=== PATIENT | male | born 1960 | race Two or more races ===

== ENCOUNTER 2017-03-31 14:43 | Inpatient (IN) | payer MEDICAID ==
[~2017-03-31] VITALS: Ht 154.9 cm; Wt 52.6 kg
--- NOTE | 2017-03-31 14:50 | NUR ---
PT MBULATORY TO ER BED 12. C/O N/V/D THAT STARTED LAST NIGHT AFTER EATING GREENLANDIC FOOD. PT DENIES ABDOMINAL PAIN. GOWNED AND PLACED ON MONITOR. 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 POLISH SPEAKING STATES DIABETIC AND NOT TAKING MEDICATION. LEIGH=ANEL LIM.
--- NOTE | 2017-03-31 15:03 | NUR ---
DR VARGAS AT BEDSIDE FOR EVAL.
[2017-03-31 15:20] LABS: BASOPHILS # (AUTO) 0.1 /CMM (0.0-0.2); BASOPHILS % (AUTO) 0.5 % (0.0-2.0); HEMATOCRIT 45 % (39-51); HEMOGLOBIN 14.6 g/dL (13.5-17.5); LYMPHOCYTES # (AUTO) 0.4 /CMM (0.8-4.8); MEAN CORPUSCULAR HEMOGLOBIN 29 PG (26.0-33.0); MEAN CORPUSCULAR HGB CONC 33 g/dl (31.0-36.0); MEAN CORPUSCULAR VOLUME 90 fL (80-96); MONOCYTES % (AUTO) 5.4 % (2.0-12.0); NEUTROPHILS # (AUTO) 17.5 /CMM (1.8-8.9); NEUTROPHILS % (AUTO) 92.1 % (43.0-81.0); PLATELET COUNT (AUTO) 274 /CMM (150-450); RDW COEFFICIENT OF VARIATION 11.7 (11.5-15.0); RED BLOOD CELL COUNT(AUTO) 5.03 MIL/uL (4.5-6.0)
[2017-03-31] MEDS ORDERED: ONDANSETRON HCL/PF 4 MG/2 ML VIAL ONE (15:21)
[2017-03-31] MEDS ORDERED: IV NS 0.9% 1,000 ML ONE ×3 (15:22→15:56)
[2017-03-31] MEDS ORDERED: IV SET PRIMARY 1 EA INFUS.SET MC ONE ×2 (15:22→15:27)
[2017-03-31 15:24] LABS: ABG BASE EXCESS -14.3 mmol/L; ABG OXYGEN SATURATION 71.3 % (92.0-98.5); ABG PCO2 29.6 mmHg (35.0-45.0); ABG PH 7.224 (7.350-7.450); ABG PO2 42.5 mmHg (75.0-100.0); AaDO2 71.8 mmHg; MetHb 0.5 % (0.0-1.5); O2Hb 70.2 % (94.0-97.0); SITE, ABG A-Line; VENT MODE, BG ROOM AIR
[2017-03-31] MEDS ORDERED: ONDANSETRON HCL/PF 4 MG/2 ML VIAL IVP ONE (15:30)
[2017-03-31] MEDS ORDERED: IV NS 0.9% 1,000 ML BAG IV ONE ×4 (15:30→21:00)
[2017-03-31 15:40] LABS: CALCIUM, SERUM 9.8 mg/dL (8.5-10.1); CARBON DIOXIDE 14 mmol/L (21-32); CHLORIDE 88 mmol/L (98-107); CREATININE 3.3 mg/dL (0.6-1.3); POTASSIUM 5.9 mmol/L (3.5-5.1); UREA NITROGEN, BLOOD 32 mg/dL (7-18)
[2017-03-31 15:42] LABS: GLUCOSE 942 mg/dL (74-106); SODIUM SERUM 119 mmol/L (136-145)
[2017-03-31] MEDS ORDERED: IV SET PRIMARY PUMP SET 1 EA INFUS.SET MC ONE ×2 (15:56→16:17)
[2017-03-31] MEDS ORDERED: INSULIN REGULAR, HUMAN 100 UNIT/ML 10 ML VIAL ONE (15:56)
[2017-03-31] MEDS ORDERED: Calcium Gluconate 1GM/10ML 4.65 MEQ in IV D5W 50 ML IV ONE (16:00)
[2017-03-31] MEDS ORDERED: INSULIN REGULAR, HUMAN 100 UNIT in IV NS 0.9% 99 ML IV PRN ×4 (16:00→18:00)
[2017-03-31] MEDS ORDERED: IV NS 0.9% 1,000 ML IV ONE (16:00)
[2017-03-31 16:16] LABS: MAGNESIUM 2.3 mg/dL (1.8-2.4); PHOSPHORUS 6.5 mg/dL (2.5-4.9)
--- NOTE | 2017-03-31 16:22 | NUR ---
SPOKE WITH NURSING POULTRY PROCESSING SUPERVISOR FOR ICU BED
[2017-03-31] MEDS ORDERED: PIPERACILLIN /TAZOBACTAM 3.375 G in IV D5W 50 ML IV ONE (16:30)
[2017-03-31] MEDS ORDERED: VANCOMYCIN 1 GM in IV D5W 250 ML IV ONE (16:30)
--- NOTE | 2017-03-31 16:30 | NUR ---
DR QUEZADA PAGED [phone]
[2017-03-31] MEDS ORDERED: LIDOCAINE VISCOUS 2% UD 15 ML UDC ONE (16:44)
[2017-03-31] MEDS ORDERED: LIDOCAINE VISCOUS 2% UD 15 ML UDC MM ONE (17:00)
[2017-03-31] MEDS ORDERED: IV NS 0.9% 1,000 ML IV PRN (17:22)
[2017-03-31] MEDS ORDERED: MAG HYDROX/AL HYDROX/SIMETH 30 ML UDC PO PRN (17:30)
[2017-03-31] MEDS ORDERED: HYDROCODONE/APAP 5/325MG 1 EACH TABLET PO PRN (17:30)
[2017-03-31] MEDS ORDERED: ONDANSETRON HCL/PF 4 MG/2 ML VIAL IVP PRN (17:30)
[2017-03-31] MEDS ORDERED: MAGNESIUM HYDROXIDE 30 ML UDC PO PRN (17:30)
[2017-03-31] MEDS ORDERED: ACETAMINOPHEN 325 MG TABLET PO PRN (17:30)
[2017-03-31 17:44] LABS: BILIRUBIN,DIRECT 0.2 mg/dL (0.0-0.2); BILIRUBIN,TOTAL 1.3 mg/dL (0.2-1.0)
--- NOTE | 2017-03-31 17:44 | NUR ---
REPORT GIVEN. PT AWAITING TRANSFER TO FLOOR.
--- NOTE | 2017-03-31 17:50 | NUR ---
BLOOD SUGAR RECHECK 500MG/DL ERMD AWARE.
[2017-03-31] MEDS ORDERED: PIPERACILLIN /TAZOBACTAM 3.375 G in IV D5W 50 ML IV SCH (18:00)
[2017-03-31] MEDS ORDERED: FEE PK DOSING 1 MIN EA MC ONE (18:19)
--- NOTE | 2017-03-31 18:30 | NUR ---
RECEIVED 56 YO MALE VIA RetidocRNEY FROM ER TO RM 260. OMANI SPEAKING RN SUPPLIED FOR PT. DX: DKA AND SBO. ALERT AND ORIENTED. APPEARS THIN AND DEHYDRATED. DENIES SIGNIF ABDOM PAIN. FREQ LOOSE BROWN BMS. NGT TO LCS DRAINING SM AMT GREENISH FLUID. INSULIN GTT TITRATED TO 2 X BS DIVIDED BY 100 EQUALS HOURLY GTT RATE IN UNITS. NS AT 200 MLS/HR
[2017-03-31 18:33] VITALS: BP 98/61
[2017-03-31] MEDS: BLOOD SUGAR DIAGNOSTIC 1 EACH STRIP IN SCH ×6 (18:53→23:54)
[2017-03-31 19:00] VITALS: BP 104/68
[2017-03-31 20:00] VITALS: BP_SYST 86; BP_SYST 87; BP_DIAS 43; BP_DIAS 53
--- NOTE | 2017-03-31 20:00 | NUR ---
COLLECTOR OF INTERNAL REVENUE: RECEIVED PT IN BED. PT ALERT AND ORIENTED .PT ON ROOM AIR. NGT TO LOW INT SUCTION DENIES ANY ABD PAIN OR SOB. ON INSULIN DRIP . BLOOD GLUCOSE CHECKED AND READJUSTED.RAC AND LAC INTACT AND PATENT. PTS BP IS 87/53 CALLED ON-CALL SAURABH BAKER FOR ORDERS .
[2017-03-31 20:19] LABS: CALCIUM, SERUM 8.9 mg/dL (8.5-10.1); CREATININE 2.1 mg/dL (0.6-1.3); POTASSIUM 3.5 mmol/L (3.5-5.1)
--- NOTE | 2017-03-31 20:35 | NUR ---
SALES CONSULTANT RESIDENTIAL MANAGER: SAURABH BAKER GAVE ORDERS FOR TWO LITER BOLUS DUE TO LOW BP.
[2017-03-31 21:00] VITALS: BP 94/60
[2017-03-31] MEDS ORDERED: IV NS 0.9% 1,000 ML BAG IV PRN (21:00)
[2017-03-31] MEDS: Z GUARD REMEDY 2 OZ OINT TP PRN (21:03)
--- NOTE | 2017-03-31 21:30 | NUR ---
AUTO PARTS PROFESSIONAL : PT VOMITED SMALL AMOUNT OF BLOOD (100ML) , PT KEPT NPO . STOOL OB SENT TO LAB . WILL CONT TO MONITOR.
[2017-03-31 22:00] VITALS: BP 90/56
[2017-03-31 23:00] VITALS: BP 115/77
--- NOTE | 2017-03-31 23:15 | NUR ---
BUSINESS SERVICES MANAGER : SAURABH BAKER AWARE OF 0 BNP AND LATEST BLOOD GLUCOSE OF 93 . GAVE ORDERS TO CHANGE FACTOR TO BS X 1.2 / 100 . WILL CONTINUE TO USE ON 1 AM BLOOD GLUCOSE CHECK. Addendum: 04/01/17 at 0216 by AUSTYN ANDERSON RN BMP TO BE DONE Q4 HR , CLARIFIED WITH OLIVIA FORBES
[2017-03-31] MEDS ORDERED: PANTOPRAZOLE 40 MG VIAL ONE (23:24)
--- NOTE | 2017-03-31 23:28 | NUR ---
CALL BOX WIRER : SAURABH BAKER AWARE OF PT VOMITING 100 ML OF BLOOD AND 100 ML NGT OUPUT OF BLOOD. ORDER FOR PROTONIX GIVEN. AWARE OF PT HAVING NO URINE OUTPUT AND LATEST K LEVEL. GAVE ORDER TO CHANGE IVF TO D5NS WITH 20 MEQ KCL AT 200 ML/HR.
[2017-03-31] MEDS ORDERED: IV PREMIX D5 NS + KCL 1,000 ML IV ONE (23:32)
[2017-03-31] MEDS: PANTOPRAZOLE 40 MG VIAL IV SCH (23:32)
[2017-03-31 23:36] LABS: CALCIUM, SERUM 8.3 mg/dL (8.5-10.1); CREATININE 1.4 mg/dL (0.6-1.3)
[2017-03-31] MEDS: Potassium Chloride 20 MEQ in IV D5/ 0.9% NACL 1,000 ML IV SCH (23:45)
[2017-03-31] MEDS: PIPERACILLIN /TAZOBACTAM 2.25 G in IV D5W 50 ML IV SCH (23:54)
[2017-03-31] MEDS ORDERED: SECONDARY IV SET 1 EA INFUS.SET MC ONE (23:59)
[2017-04-01] VITALS (30 sets, daily range): BP systolic 80–138; BP diastolic 40–80
[2017-04-01] MEDS: BLOOD SUGAR DIAGNOSTIC 1 EACH STRIP IN SCH ×19 (01:13→23:08)
[2017-04-01 03:26] LABS: BASOPHILS % (AUTO) 0.1 % (0.0-2.0); HEMATOCRIT 33 % (39-51); HEMOGLOBIN 11.5 g/dL (13.5-17.5); LYMPHOCYTES # (AUTO) 0.8 /CMM (0.8-4.8); LYMPHOCYTES % (AUTO) 6.1 % (20.0-44.0); MEAN CORPUSCULAR HEMOGLOBIN 30 PG (26.0-33.0); MEAN CORPUSCULAR HGB CONC 35 g/dl (31.0-36.0); MEAN CORPUSCULAR VOLUME 86 fL (80-96); MONOCYTES # (AUTO) 0.8 /CMM (0.1-1.30); MONOCYTES % (AUTO) 5.9 % (2.0-12.0); NEUTROPHILS # (AUTO) 11.7 /CMM (1.8-8.9); NEUTROPHILS % (AUTO) 87.9 % (43.0-81.0); PLATELET COUNT (AUTO) 247 /CMM (150-450); RDW COEFFICIENT OF VARIATION 12.5 (11.5-15.0); RED BLOOD CELL COUNT(AUTO) 3.87 MIL/uL (4.5-6.0); WHITE BLOOD COUNT (AUTO) 13.3 K/uL (4.3-11.0)
[2017-04-01 03:38] LABS: ALBUMIN 2.7 g/dL (3.4-5.0); BILIRUBIN,TOTAL 1.2 mg/dL (0.2-1.0); CALCIUM, SERUM 8.1 mg/dL (8.5-10.1); CREATININE 1.1 mg/dL (0.6-1.3); PHOSPHORUS 3.5 mg/dL (2.5-4.9); POTASSIUM 4.2 mmol/L (3.5-5.1); TOTAL PROTEIN, SERUM 6.2 g/dL (6.4-8.2)
[2017-04-01 03:49] LABS: THYROID STIMULATING HORMONE 1.263 uIU/mL (0.358-3.74)
[2017-04-01] MEDS ORDERED: IV PREMIX D5 NS + KCL 1,000 ML IV ONE (04:46)
[2017-04-01] MEDS: Potassium Chloride 20 MEQ in IV D5/ 0.9% NACL 1,000 ML IV SCH (05:00)
[2017-04-01] MEDS: PIPERACILLIN /TAZOBACTAM 2.25 G in IV D5W 50 ML IV SCH ×2 (05:02→11:36)
--- NOTE | 2017-04-01 07:10 | NUR ---
ICU INITIAL NOTES RECEIVED PT IN BED, AWAKE, ABLE TO MAKE NEEDS KNOWN, GABONESE SPEAKING, ABLE TO FOLLOW COMMANDS, PT IS ON TELE MONITOR SHOWING SR @ 70BMP, NO C/O CHEST PAIN OR DISCOMFORT AT THIS TIME, PT IS ON RA, SATING 99%, NO S/S OF RESP.DISTRESS OR SOB NOTED AT THIS TIME, PT HAS L NGT, DRAINING BLOODY FLUID, MD AWARE, PT CURRENTLY IS NPO AT THIS TIME, RAC # 18G, RUNNING D5 NS+20 KCL @ 200ML/HR, INSULIN DRIP @ 1.8 UNITS/HR, LAC #18G, C/D/I/PATENT; FLUSHING WELL, NO S/S OF INFECTION/ INFILTRATION NOTED AT THIS TIME, PT SIGNED CONSENT FOR SBFT, ALL SAFETY MEASURES IN PLACE AT ALL TIMES, CALL LIGHT WITHIN EASY REACH, WILL MONITOR PT CLOSELY FOR CHANGES
[2017-04-01] MEDS ORDERED: PANTOPRAZOLE 40 MG TABLET.DR PO SCH (07:30)
[2017-04-01 08:21] LABS: CALCIUM, SERUM 8.2 mg/dL (8.5-10.1)
[2017-04-01] MEDS: PANTOPRAZOLE 40 MG VIAL IV SCH ×2 (08:38→16:43)
--- NOTE | 2017-04-01 08:52 | NUR ---
ICU NOTES NON ADMINISTERED PINK MEDICATIONS FOR PT SAFETY
[2017-04-01] MEDS: Potassium Chloride 20 MEQ in IV D5/ 0.9% NACL 1,000 ML IV PRN ×2 (08:54→16:34)
--- NOTE | 2017-04-01 09:00 | NUR ---
ICU NOTES , DR. JOLLEY AND SARA WILKINS AWARE OF CT ADBOMEN/PELVIS, [facility] WANT SMALL BOWEL FOLLOW THOUGH, AWAITING FOR RADIOLOGY.
--- NOTE | 2017-04-01 09:09 | NUR ---
called patient down for exam, nurse will notify us when ready
--- NOTE | 2017-04-01 10:00 | NUR ---
ICU NOTES SARA WILKINS MADE ROUNDS, AWARE OF LABS AND RESULTS, ALL NEW ORDERS ACK.
[2017-04-01 13:27] LABS: CREATININE 0.8 mg/dL (0.6-1.3); POTASSIUM 3.7 mmol/L (3.5-5.1)
[2017-04-01] MEDS: VANCOMYCIN 0.75 GM in IV D5W 250 ML IV SCH ×2 (14:28→21:23)
[2017-04-01] MEDS ORDERED: DEXTROSE 50%-WATER 50 ML DISP.SYRIN IV PRN (15:00)
--- NOTE | 2017-04-01 16:00 | NUR ---
ICU NOTES CONSENT OBTAINED FOR EGD, BLOOD AND ANESTHESIA
[2017-04-01 16:05] LABS: CALCIUM, SERUM 8.3 mg/dL (8.5-10.1); CREATININE 0.7 mg/dL (0.6-1.3); POTASSIUM 3.6 mmol/L (3.5-5.1)
[2017-04-01 16:17] LABS: APPEARANCE,URINE SL CLOUDY (CLEAR); BILIRUBIN,URINE NEGATIVE (NEGATIVE); BLOOD, URINE NEGATIVE Ery/uL (NEGATIVE); COLOR,URINE YELLOW (YELLOW); KETONES,URINE NEGATIVE (NEGATIVE); LEUKOCYTE ESTERASE ,URINE NEGATIVE (NEGATIVE); NITRITE, URINE NEGATIVE (NEGATIVE); PH,URINE 5.5 (5.0-8.0); PROTEIN,URINE 1+ mg/dl (NEGATIVE); UGLUCOSE 2+ mg/dL (NEGATIVE); UROBILINOGEN,URINE 0.2 EU/dL (0.2)
[2017-04-01 16:21] LABS: BACTERIA,URINE None seen /HPF (None Seen); RBC,URINE 0-2 /HPF (0-2); SQUAMOUS EPITHELIAL CELL,UR Rare /HPF (None Seen); WBC,URINE 0-2 /HPF (0-3)
[2017-04-01 16:22] LABS: URIC ACID CRYSTALS,URINE Few /HPF (None Seen)
[2017-04-01] MEDS: INSULIN REGULAR, HUMAN 100 UNIT/ML 3 ML VIAL SQ PRN ×4 (16:31→23:19)
[2017-04-01] MEDS ORDERED: VANCOMYCIN 1 GM in IV D5W 250 ML IV SCH (17:00)
[2017-04-01] MEDS ORDERED: DIATR MEGLU/DIATRIZOATE SODIUM 120 ML BOTTLE (GASTROGRAPHIN) ONE (17:38)
--- NOTE | 2017-04-01 18:00 | NUR ---
ICU NOTES DR. JOLLEY AT BEDSIDE, STATED THAT IF H/H STABLE, NO BLEEDING NO NEED FOR EGD
[2017-04-01] MEDS: PIPERACILLIN /TAZOBACTAM 3.375 G in IV D5W 50 ML IV SCH ×2 (18:18→23:08)
[2017-04-01 18:25] LABS: HEMOGLOBIN 11.5 g/dL (13.5-17.5)
--- NOTE | 2017-04-01 18:37 | NUR ---
ICU NOTE INSULIN DRIP D/C PER MD ORDER
[2017-04-01] MEDS ORDERED: IV SET PRIMARY PUMP SET 1 EA INFUS.SET MC ONE (19:35)
[2017-04-01] MEDS: IV D5/0.45 NACL 1,000 ML IV PRN (19:42)
[2017-04-01 19:56] LABS: CALCIUM, SERUM 8.1 mg/dL (8.5-10.1); CREATININE 0.6 mg/dL (0.6-1.3); POTASSIUM 3.7 mmol/L (3.5-5.1)
--- NOTE | 2017-04-01 20:40 | NUR ---
MANUFACTURING MAINTENANCE TECHNICIAN JOANN PETIT TECH AT BEDSIDE TO DO SMALL BOWEL FOLLOW THROUGH. RADIOLOGIST DR JENKINS APPROVED PROCEDURE AND PER AM NURSE SARA WILKINS, DR QUEZADA AND DR FLORENCE ALL STILL WANT THE PROCEDURE TO BE DONE. NGT PLACEMENT VERIFIED VIA AUSCULTATION AND XR. PT POSITIONED PROPERLY FOR XR. PT DENIES ANY ALLERGIES. IODINE GASTROGRAFIN GIVEN VIA NGT. PT TOLERATED WELL.
[2017-04-01 23:25] LABS: CALCIUM, SERUM 8.5 mg/dL (8.5-10.1); CREATININE 0.7 mg/dL (0.6-1.3); POTASSIUM 3.5 mmol/L (3.5-5.1)
[2017-04-02] VITALS (20 sets, daily range): BP systolic 102–145; BP diastolic 60–88
[2017-04-02] MEDS: BLOOD SUGAR DIAGNOSTIC 1 EACH STRIP IN SCH ×8 (00:57→21:07)
[2017-04-02] MEDS: INSULIN REGULAR, HUMAN 100 UNIT/ML 3 ML VIAL SQ PRN ×8 (00:59→21:14)
[2017-04-02 03:43] LABS: CALCIUM, SERUM 8.5 mg/dL (8.5-10.1); CREATININE 0.7 mg/dL (0.6-1.3); POTASSIUM 3.6 mmol/L (3.5-5.1)
[2017-04-02] MEDS: PIPERACILLIN /TAZOBACTAM 3.375 G in IV D5W 50 ML IV SCH ×4 (05:22→23:15)
[2017-04-02] MEDS: VANCOMYCIN 0.75 GM in IV D5W 250 ML IV SCH ×3 (06:16→21:07)
--- NOTE | 2017-04-02 06:21 | NUR ---
ANALYTICAL STRATEGIST NO CHANGES NOTED THROUGHOUT THE NIGHT. 300ML OF DARK MAROON COLORED LIQUID OUT FROM NGT SUCTION
--- NOTE | 2017-04-02 07:15 | NUR ---
ICU INITIAL NOTES RECEIVED PT IN BED, AWAKE, ABLE TO MAKE NEEDS KNOWN, MICRONESIAN SPEAKING, ABLE TO FOLLOW COMMANDS, PT IS ON TELE MONITOR SHOWING SR @ 76 BPM, NO C/O CHEST PAIN OR DISCOMFORT AT THIS TIME, PT IS ON RA, SATING 99%, NO S/S OF RESP.DISTRESS OR SOB NOTED AT THIS TIME, PT HAS L NGT, DRAINING MINIMAL GREENISH/MAROON FLUID, INTACT/PATENT, FLUSHING WELL, PT CURRENTLY IS NPO AT THIS TIME, PT HAS RAC # 18G, RUNNING D5 1/2NS @75ML/HR, LAC #18G, C/D/I/PATENT; FLUSHING WELL, NO S/S OF INFECTION/ INFILTRATION NOTED AT THIS TIME, ALL SAFETY MEASURES IN PLACE AT ALL TIMES, CALL LIGHT WITHIN EASY REACH, WILL MONITOR PT CLOSELY FOR CHANGES
[2017-04-02 07:50] LABS: CALCIUM, SERUM 8.4 mg/dL (8.5-10.1); CREATININE 0.7 mg/dL (0.6-1.3); POTASSIUM 3.4 mmol/L (3.5-5.1)
[2017-04-02] MEDS: PANTOPRAZOLE 40 MG VIAL IV SCH (09:12)
[2017-04-02] MEDS: Z GUARD REMEDY 2 OZ OINT TP PRN (09:17)
--- NOTE | 2017-04-02 09:20 | NUR ---
ICU NOTE RECEIVED ORDERS TO REMOVED NGT AND START CLEAR LIQUIDS, NGT REMOVED, PT TOLERATED WELL, WILL MONITOR PT CLOSELY FOR CHANGES
[2017-04-02 09:36] LABS: BASOPHILS % (AUTO) 0.1 % (0.0-2.0); EOSINOPHILS # (AUTO) 0.1 /CMM (0.0-0.7); EOSINOPHILS % (AUTO) 0.5 % (0.0-6.0); HEMATOCRIT 36 % (39-51); HEMOGLOBIN 12.2 g/dL (13.5-17.5); LYMPHOCYTES # (AUTO) 0.8 /CMM (0.8-4.8); LYMPHOCYTES % (AUTO) 5.7 % (20.0-44.0); MEAN CORPUSCULAR HEMOGLOBIN 30 PG (26.0-33.0); MEAN CORPUSCULAR HGB CONC 34 g/dl (31.0-36.0); MEAN CORPUSCULAR VOLUME 87 fL (80-96); MONOCYTES # (AUTO) 0.3 /CMM (0.1-1.30); MONOCYTES % (AUTO) 1.7 % (2.0-12.0); NEUTROPHILS # (AUTO) 13.6 /CMM (1.8-8.9); PLATELET COUNT (AUTO) 233 /CMM (150-450); RDW COEFFICIENT OF VARIATION 13.4 (11.5-15.0); RED BLOOD CELL COUNT(AUTO) 4.15 MIL/uL (4.5-6.0); WHITE BLOOD COUNT (AUTO) 14.8 K/uL (4.3-11.0)
[2017-04-02 10:56] LABS: BAND % (MANUAL) 13 % (0.0-5.0); LYMPHOCYTES % (MANUAL) 3 % (16-48); MONOCYTES % (MANUAL) 4 % (0-11.0); NEUTROPHILS % (MANUAL) 80 (42-76)
[2017-04-02] MEDS ORDERED: POTASSIUM CL. PREMIX PERIPHER. 50 ML IV SCH (11:00)
[2017-04-02] MEDS ORDERED: SECONDARY IV SET 1 EA INFUS.SET MC ONE (11:08)
[2017-04-02] MEDS ORDERED: POTASSIUM CHLORIDE 20 MEQ POWDER PACKET NG SCH (11:30)
[2017-04-02] MEDS ORDERED: DEXTROSE 50%-WATER 50 ML DISP.SYRIN IV PRN (12:00)
[2017-04-02] MEDS: IV D5/0.45 NACL 1,000 ML IV PRN (13:28)
--- NOTE | 2017-04-02 15:35 | NUR ---
RN INITIAL NOTE PATIENT RECEIVED, TRANSFER FROM ICU. REPORT RECEIVED FROM YUKO.
--- NOTE | 2017-04-02 15:38 | NUR ---
ICU NOTES REPORT WAS GIVEN TO JAYASHREE TOPETE, FOR EUSEBIO, TRANSFERRED PT TO ROOM WITH FAMILY AT BEDSIDE
[2017-04-02] MEDS: METFORMIN 500 MG TABLET PO SCH (16:26)
[2017-04-02] MEDS: glipiZIDE 5 MG TABLET PO SCH (16:26)
--- NOTE | 2017-04-02 20:00 | NUR ---
PROGRAM DIRECTOR SCOUTING - NOTES - RECEIVED PT IN BED, AWAKE, ABLE TO MAKE NEEDS KNOWN, PARAGUAYAN SPEAKING, ABLE TO FOLLOW COMMANDS, NO C/O CHEST PAIN OR DISCOMFORT AT THIS TIME, PT IS ON RA, SATING 96%, NO S/S OF RESP.DISTRESS OR SOB NOTED AT THIS TIME, PT CURRENTLY IS ON CLEAR LIQUID DIET, ADVANCE TOLERATED AT THIS TIME, PT HAS RAC # 18G, RUNNING D5 1/2NS @75ML/HR, C/D/I/PATENT; FLUSHING WELL, NO S/S OF INFECTION/ INFILTRATION NOTED AT THIS TIME, ALL SAFETY MEASURES IN PLACE AT ALL TIMES, CALL LIGHT WITHIN EASY REACH, WILL MONITOR PT CLOSELY FOR CHANGES
[2017-04-02] MEDS: PANTOPRAZOLE 40 MG TABLET.DR PO SCH (21:07)
[2017-04-03 04:00] VITALS: BP 106/68
[2017-04-03] MEDS: PIPERACILLIN /TAZOBACTAM 3.375 G in IV D5W 50 ML IV SCH ×2 (06:00→11:19)
[2017-04-03] MEDS: VANCOMYCIN 0.75 GM in IV D5W 250 ML IV SCH ×2 (06:00→15:18)
[2017-04-03 06:40] LABS: BASOPHILS % (AUTO) 0.2 % (0.0-2.0); EOSINOPHILS # (AUTO) 0.1 /CMM (0.0-0.7); EOSINOPHILS % (AUTO) 0.9 % (0.0-6.0); HEMATOCRIT 35 % (39-51); HEMOGLOBIN 11.9 g/dL (13.5-17.5); LYMPHOCYTES # (AUTO) 1.2 /CMM (0.8-4.8); LYMPHOCYTES % (AUTO) 10.1 % (20.0-44.0); MEAN CORPUSCULAR HEMOGLOBIN 30 PG (26.0-33.0); MEAN CORPUSCULAR HGB CONC 34 g/dl (31.0-36.0); MEAN CORPUSCULAR VOLUME 87 fL (80-96); MONOCYTES # (AUTO) 0.7 /CMM (0.1-1.30); MONOCYTES % (AUTO) 5.4 % (2.0-12.0); NEUTROPHILS # (AUTO) 10.3 /CMM (1.8-8.9); NEUTROPHILS % (AUTO) 83.4 % (43.0-81.0); PLATELET COUNT (AUTO) 239 /CMM (150-450); RDW COEFFICIENT OF VARIATION 13.1 (11.5-15.0); RED BLOOD CELL COUNT(AUTO) 3.98 MIL/uL (4.5-6.0); WHITE BLOOD COUNT (AUTO) 12.3 K/uL (4.3-11.0)
[2017-04-03 06:55] LABS: CALCIUM, SERUM 8.3 mg/dL (8.5-10.1); CREATININE 0.6 mg/dL (0.6-1.3); POTASSIUM 3.3 mmol/L (3.5-5.1)
[2017-04-03 08:00] VITALS: BP 122/79
[2017-04-03] MEDS: BLOOD SUGAR DIAGNOSTIC 1 EACH STRIP IN SCH ×2 (08:10→12:25)
[2017-04-03] MEDS: METFORMIN 500 MG TABLET PO SCH (08:12)
[2017-04-03] MEDS: PANTOPRAZOLE 40 MG TABLET.DR PO SCH (08:12)
[2017-04-03] MEDS: glipiZIDE 5 MG TABLET PO SCH (08:12)
[2017-04-03] MEDS: INSULIN REGULAR, HUMAN 100 UNIT/ML 3 ML VIAL SQ PRN ×2 (08:12→12:31)
[2017-04-03] MEDS ORDERED: POTASSIUM CHLORIDE 20 MEQ POWDER PACKET NG SCH (10:30)
[2017-04-03] MEDS ORDERED: SECONDARY IV SET 1 EA INFUS.SET MC ONE (11:10)
[2017-04-03] MEDS ORDERED: GLIP5TAB13 PO (12:26)
[2017-04-03] MEDS ORDERED: METF500T4 PO (12:26)
[2017-04-03] MEDS ORDERED: PNEUMOCOCCAL 23-VAL P-SAC VAC 0.5 ML VIAL SQ ONE (14:00)
[2017-04-03] MEDS: IV D5/0.45 NACL 1,000 ML IV PRN (15:18)
[2017-04-03 16:00] VITALS: BP 145/82
--- NOTE | 2017-04-03 17:43 | NUR ---
RN NOTE PT DISCHARGED HOME WITH BROTHER IN STABLE CONDITION, AMBULATORY, EXIT CARE PROVIDED TO PT, DISCHARGE INSTRUCTIONS GIVEN TO PT, PRESCRIPTION PROVIDED TO PT AND FAXED TO [facility]ARM[facility], , IV REMOVED, ID BAND REMOVED, SKIN INTACT, BELONGINGS LIST SIGNED AND GIVEN TO PT. PHONE NUMBER FOR URGENT CARE AT [facility] GIVEN.
== END 2017-04-03 17:40 | disposition home or self-care (01) | DRG 420 ==
LOC: ER 14:49 → ICU 18:11 → MEDSG1 04-02 15:43
PROVIDERS: ADMIT Nurse Practitioner Acute Care; ATTEND Nurse Practitioner Acute Care
DX: E13.10 Other specified diabetes mellitus with ketoacidosis without coma (principal); N17.0 Acute kidney failure with tubular necrosis; K56.60 Unspecified intestinal obstruction; D62 Acute posthemorrhagic anemia; K92.2 Gastrointestinal hemorrhage, unspecified; E87.5 Hyperkalemia; E86.0 Dehydration; Z83.3 Family history of diabetes mellitus
CPT/HCPCS: 36415; 36600; 71010-TC; 72128-TC; 74250-TC; 80048-TC; 80053-TC; 80061-TC; 80202-TC; 81000-TC; 82247-TC; 82248-TC; 82272-TC; 82962-TC; 83605-TC; 83735-TC; 84100-TC; 84443-TC; 85025-TC; 85027-TC; 87040-TC; 87081-TC; 87086-TC; 90732; A4606; C9113; J0610; J1815; J2405; J2543; J3370; J3480; J3490; J7030; J7042; J7060; Q9963; Z7610